=== PATIENT | male | born 2000 | race Caucasian/White ===

== ENCOUNTER 2024-05-24 01:10 | Emergency (ER) | payer BC ==
[2024-05-24 01:16] VITALS: BP 140/90; PULSE 58; RESP 18; TEMP 97.5; BMI 27.1
[2024-05-24] MEDS ORDERED: FAMOTIDINE 20 MG/50 ML IVPB 20 MG/50 ML MG IVPB ONE (01:32)
[2024-05-24] MEDS ORDERED: MAG HYDROX/AL HYDROX/SIMETH 30 ML UNIT-DOSE CUP ONE (01:32)
[2024-05-24] MEDS ORDERED: ONDANSETRON 4 MG/2 ML VIAL ONE ×2 (01:32→02:47)
[2024-05-24] MEDS: FAMOTIDINE 20 MG/50 ML IVPB 20 MG/50 ML MG IVPB ONE (01:43)
[2024-05-24] MEDS: SODIUM CHLORIDE 1,000 ML IV STA (01:43)
[2024-05-24] MEDS: MAG HYDROX/AL HYDROX/SIMETH -MYLANTA- ORAL SUSPENSION PO ONE (01:43)
[2024-05-24] MEDS: ONDANSETRON 4 MG/2 ML VIAL IVPUSH ONE ×2 (01:44→02:54)
[2024-05-24 02:12] LABS: BASO % 0.9 % (0-2.0); EOS % 3.2 % (0-4.5); HEMATOCRIT 42.1 % (35.4-49); HEMOGLOBIN 14.4 GM/dL (11.7-16.9); LYMPH % 47.5 % (8-40); MCH 29.5 pg (25.7-33.7); MCHC 34.3 g/dl (32.0-35.9); MEAN CELL VOLUME 86.1 fl (80-96); MEAN PLT VOLUME 8.6 fl (7.5-11.1); MONO % 11.4 % (3.8-10.2); PLATELET COUNT 236 10^3/uL (134-434); RBC 4.89 M/mm3 (4.00-5.60); RDW 13.9 % (11.9-15.9); WHITE BLOOD COUNT 6.3 K/mm3 (4.0-10.0)
[2024-05-24 02:30] LABS: POTASSIUM 3.5 mmol/L (3.5-5.1)
[2024-05-24 02:33] LABS: ALBUMIN 4.2 g/dl (3.4-5.0); BLOOD UREA NITROGEN 15.5 mg/dL (7-18); CALCIUM 9.5 mg/dL (8.5-10.1)
[2024-05-24 02:36] LABS: CREATININE 1.3 mg/dL (0.55-1.3)
[2024-05-24 02:38] LABS: BILIRUBIN,TOTAL 0.4 mg/dL (0.2-1); TOT PROT 7.2 g/dl (6.4-8.2)
[2024-05-24] MEDS: SUCRALFATE 1 GM TABLET (FP) PO ONE (03:06)
== END 2024-05-24 04:13 | disposition home or self-care (01) ==
LOC: FER 01:10
PROC: 3E033GC Introduction of Other Therapeutic Substance into Peripheral Vein, Percutaneous Approach (ICD-10-PCS; principal; 2024-05-24)
PROC: 3E033GC Introduction of Other Therapeutic Substance into Peripheral Vein, Percutaneous Approach (ICD-10-PCS; 2024-05-24)
PROC: 3E033GC Introduction of Other Therapeutic Substance into Peripheral Vein, Percutaneous Approach (ICD-10-PCS; 2024-05-24)
DX: R10.84 Generalized abdominal pain (principal); R11.2 Nausea with vomiting, unspecified; R19.7 Diarrhea, unspecified; K52.9 Noninfective gastroenteritis and colitis, unspecified
CPT/HCPCS: 36415; 80053; 83690; 85025; 99284-25